=== PATIENT | female | born 1995 | race Caucasian/White ===

== ENCOUNTER 2019-04-01 18:19 | Emergency (ER) | payer OTHER ==
[~2019-04-01] VITALS: Ht 162.6 cm; Wt 87.0 kg
[2019-04-01 21:56] VITALS: BP 148/82
== END 2019-04-01 21:57 | disposition home or self-care (01) ==
LOC: ER 18:52
DX: R05 Cough (principal); R09.81 Nasal congestion; R03.0 Elevated blood-pressure reading, without diagnosis of hypertension
CPT/HCPCS: 99283